=== PATIENT | female | born 1975 | race Caucasian/White ===

== ENCOUNTER 2020-10-10 03:30 | Emergency (ER) | payer SELFPAY ==
[~2020-10-10 03:30] MED LIST: BACLOFEN 10MG T10 MG PO; BENTYL10 MG PO; IBUPROFEN800 MG PO; MEDROL 4MG DOSEP4 MG PO; ONDANSETRON ODT4 MG SL; TRAMADOL HCL50 MG PO
[2020-10-10 04:26] LABS: BASOPHIL 0.7 % (0-2); EOSINOPHIL 1.8 % (0-5); HCT 39.1 % (37.0-47.0); HGB 13.1 g/dl (12.5-16.0); LYMPHOCYTE 32.8 % (15-48); MCH 31.3 pg (25.0-31.0); MCHC 33.5 g/dL (32.0-36.0); MCV 93.5 fL (78.0-100.0); MONOCYTE 7.6 % (0-12); MPV 10.5 fL (6.0-9.5); NEUTROPHIL 56.8 % (41-80); NRBC 0; PLT 189 K/uL (150-400); RBC 4.18 M/uL (4.20-5.40); RDW 11.7 % (11.5-14.0); WBC 7.4 K/uL (4.0-10.5)
[2020-10-10 04:55] LABS: BUN/CREAT RATIO (CALC) 15.4 RATIO; CREATININE 0.91 mg/dL (0.51-0.95); POTASSIUM 3.9 mmol/L (3.5-5.1)
[2020-10-10 06:08] LABS: BILIRUBIN NEGATIVE (NEGATIVE); BLOOD 3+ Ery/uL (NEGATIVE); CLARITY CLEAR (CLEAR); COLOR YELLOW (YELLOW); GLUCOSE (U) NORMAL (NORMAL); LEUKOCYTES NEGATIVE Leu/uL (NEGATIVE); NITRITE NEGATIVE (NEGATIVE); PROTEIN NEGATIVE (NEGATIVE); SPECIFIC GRAVITY <=1.005 (1.001-1.030); UROBILINOGEN 0.2 mg/dL (0.2-1.0); pH 6.5 (5.0-9.0)
[2020-10-10 06:22] LABS: SQUAMOUS EPITHELIAL CELLS RARE; URINARY RBC TNTC; URINARY WBC RARE
[2020-10-10] MEDS ORDERED: SPRINTEC 28 DA1 EACH PO (08:18)
[2020-10-12 00:09] LABS: CHLAMYDIA TRACHOMATIS, NAA Negative (Negative); NEISSERIA GONORRHOEAE, NAA Negative (Negative)
== END 2020-10-10 06:03 | disposition home or self-care (01) ==
LOC: FER 03:30
PROVIDERS: Emergency Medicine Emergency Medical Services
DX: N93.8 Other specified abnormal uterine and vaginal bleeding (principal); Z90.49 Acquired absence of other specified parts of digestive tract; Z88.5 Allergy status to narcotic agent
CPT/HCPCS: 36415; 80048; 81001; 85025; 87210; 87491; 87591; 99284